=== PATIENT | female | born 2000 | race Caucasian/White ===

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

== ENCOUNTER 2022-01-03 19:07 | Emergency (ER) | payer MEDICAID ==
[~2022-01-03] VITALS: Ht 170.2 cm; Wt 117.5 kg
[~2022-01-03 19:07] MED LIST: CLIN300C2 PO; FERR324T11 PO; HYDR-5122 PO
[2022-01-03 19:10] VITALS: BP 122/75
--- NOTE | 2022-01-03 19:37 | NUR ---
azra collected and taken to lab.
--- NOTE | 2022-01-03 20:00 | NUR ---
Britni delcid in EDM - 01/03/22 at 2001 by MEDSARA PT TAKEN TO ER BED 12
--- NOTE | 2022-01-03 20:01 | NUR ---
PT TAKEN TO ER BED 11
--- NOTE | 2022-01-03 20:14 | NUR ---
21 Y/O FEMALE BIBS, C/O FEVER X3 DAYS AND WOUND TO RIGHT ARMPIT. FOR X3 DAYS PT HAS HAD A FEVER, HEADACHE, NAUSEA, AND CHILLS. SKIN IS PINK, WARM, AND DRY. PT HAS A OPEN WOUND WITH POSS INFECTION TO RIGHT ARMPIT X1 MONTH.PT REPORTS IT IS "STARTING TO SMELL." DENIES VOMIT, DIARRHEA, OR BODY ACHES. PT IS A/OX4, GCS-15. PT HAS UNLABORED BREATHING AND SPEAKING IN FULL SENTENCES. PT WALKED TO BED W/O ASSISTANCE. BED IS LOWERED AND HOB RAISED, AND RAILS UP X1. PT HAS BEEN TAKING TYLENOL FOR PAIN FOR LAST 2 DAYS W/O RELIEF. PT DENIES PMH/RX NKA SX: ABCESS TO L BREAST
[2022-01-03] MEDS ORDERED: ACETAMINOPHEN EXTRA STRENGTH 500 MG TAB PO ONE (20:55)
[2022-01-03] MEDS ORDERED: cephALEXin 500 MG CAP PO ONE (20:55)
--- NOTE | 2022-01-03 21:00 | NUR ---
FOUNTAIN PEN TURNER AT BEDSIDE
--- NOTE | 2022-01-03 21:20 | NUR ---
X-Ray at bedside.
[2022-01-03 21:27] LABS: BASOPHILS % (AUTO) 0.4 % (0.0-2.0); EOSINOPHILS % (AUTO) 0.1 % (0.0-4.0); HEMATOCRIT 35.6 % (36-48); HEMOGLOBIN 11.3 g/dL (12.0-16.0); MEAN CORPUSCULAR HEMOGLOBIN 25 pg (27-31); MEAN CORPUSCULAR HGB CONC 32 g/dL (33-37); MEAN CORPUSCULAR VOLUME 77.3 fL (80-94); MONOCYTES # (AUTO) 0.6 K/uL (0.8-1.0); MONOCYTES % (AUTO) 9.3 % (1.7-9.3); NEUTROPHILS # (AUTO) 4.2 K/uL (1.8-7.7); NEUTROPHILS % (AUTO) 61.2 % (42.2-75.2); PLATELET COUNT (AUTO) 227 K/uL (140-450); RED BLOOD CELL COUNT(AUTO) 4.61 MIL/uL (4.20-5.40); WHITE BLOOD COUNT (AUTO) 6.9 K/uL (4.8-10.8)
[2022-01-03 21:39] LABS: BILIRUBIN,URINE NEGATIVE (NEGATIVE); BLOOD, URINE NEGATIVE (NEGATIVE); COLOR,URINE YELLOW (YELLOW); LEUKOCYTE ESTERASE ,URINE NEGATIVE (NEGATIVE); NITRITE, URINE POSITIVE (NEGATIVE); UGLUCOSE NEGATIVE (NEGATIVE)
[2022-01-03 21:40] LABS: APPEARANCE,URINE HAZY (CLEAR)
[2022-01-03 21:44] LABS: ANION GAP 14.1 (8-16); CARBON DIOXIDE 22.3 mmol/L (21-32); CREATININE 0.7 mg/dL (0.6-1.3); POTASSIUM 3.4 mmol/L (3.5-5.1)
[2022-01-03] MEDS ORDERED: IBUP-2213 PO (22:08)
[2022-01-03] MEDS ORDERED: ACET-10509 PO (22:08)
[2022-01-03] MEDS ORDERED: CEPH-588 PO (22:08)
[2022-01-03 22:17] VITALS: BP 120/76
--- NOTE | 2022-01-03 22:17 | NUR ---
Patient discharged with v/s stable. Written and verbal after care instructions given and explained. Patient alert, oriented and verbalized understanding of instructions. Ambulatory with steady gait. All questions addressed prior to discharge. ID band removed. Patient advised to follow up with PMD. Rx of ACETAMINOPHEN, KEFLEX, AND IBUPROFEN given. Patient educated on indication of medication including possible reaction and side effects. Opportunity to ask questions provided and answered. VSS, A/OX4, AMBULATORY, UNLAABORED BREATHING, AND CALM DEMEANOR.
== END 2022-01-03 22:17 | disposition home or self-care (01) ==
LOC: MED 19:07
DX: L03.113 Cellulitis of right upper limb (principal); Z20.822 Contact with and (suspected) exposure to COVID-19; L03.114 Cellulitis of left upper limb; L73.2 Hidradenitis suppurativa; Z79.899 Other long term (current) drug therapy
CPT/HCPCS: 36415; 71045; 80048; 81003; 83605; 85025; 87040; 99284

== ENCOUNTER 2022-05-15 18:51 | Emergency (ER) | payer MEDICAID ==
[~2022-05-15] VITALS: Ht 170.2 cm; Wt 90.7 kg
[~2022-05-15 18:51] MED LIST changes: +ACET-10509 PO; +CEPH-588 PO; +IBUP-2213 PO
[2022-05-15 19:04] VITALS: BP 136/81
--- NOTE | 2022-05-15 19:11 | NUR ---
PT AMB TO BED 12.
--- NOTE | 2022-05-15 19:45 | NUR ---
PT C/O RECTAL PAIN AND BLEEDING, PT STATES SHE FELT A LUMP IN HER RECTUM YESTERDAY, CONSTIPATION X 1 WEEK, NO BM X 1 WEEK. DENIES ANY OTHER DISCOMFORT. PT PLACED IN GOWN, WAITING FOR EVALUATION.
--- NOTE | 2022-05-15 19:50 | NUR ---
GLADIS AND AT BEDSIDE PERFORMING RECTAL EVALUATION.
[2022-05-15] MEDS ORDERED: DOCU-299 PO (20:15)
[2022-05-15] MEDS ORDERED: HYDR-2734 TP (20:15)
[2022-05-15] MEDS ORDERED: IBUP-2213 PO (20:22)
[2022-05-15 20:25] VITALS: BP 132/60
--- NOTE | 2022-05-15 20:25 | NUR ---
Patient discharged with v/s stable. Written and verbal after care instructions given and explained. Patient verbalized understanding. Ambulatory with steady gait. All questions addressed prior to discharge. Advised to follow up with PMD.
== END 2022-05-15 20:24 | disposition home or self-care (01) ==
LOC: MED 18:51
DX: K64.4 Residual hemorrhoidal skin tags (principal); I10 Essential (primary) hypertension; Z79.899 Other long term (current) drug therapy; Z79.1 Long term (current) use of non-steroidal anti-inflammatories (NSAID); Z79.2 Long term (current) use of antibiotics
CPT/HCPCS: 99283

== ENCOUNTER 2024-04-05 16:35 | Emergency (ER) | payer MEDICAID, OTHER ==
[~2024-04-05] VITALS: Ht 170.2 cm; Wt 68.5 kg
[~2024-04-05 16:35] MED LIST changes: +DOCU-299 PO; +HYDR-2734 TP
[2024-04-05 16:54] VITALS: BP 97/58; PULSE 83; RESP 17; TEMP 98.7; O2SAT 100
[2024-04-05 18:32] LABS: BILIRUBIN,URINE NEGATIVE (NEGATIVE); BLOOD, URINE NEGATIVE (NEGATIVE); LEUKOCYTE ESTERASE ,URINE NEGATIVE (NEGATIVE); NITRITE, URINE POSITIVE (NEGATIVE); PH,URINE 6.5 (5.0-9.0); PROTEIN,URINE NEGATIVE (NEGATIVE); UGLUCOSE NEGATIVE (NEGATIVE)
[2024-04-05 18:35] LABS: BASOPHILS % (AUTO) 0.5 % (0.0-2.0); EOSINOPHILS # (AUTO) 0.2 K/uL (0-0.4); EOSINOPHILS % (AUTO) 3.8 % (0.0-4.0); HEMATOCRIT 31.1 % (36-48); HEMOGLOBIN 9.9 g/dL (12.0-16.0); LYMPHOCYTES # (AUTO) 1.3 K/uL (2.5-16.5); LYMPHOCYTES % (AUTO) 29.5 % (20.5-51.1); MEAN CORPUSCULAR HEMOGLOBIN 24 pg (27-31); MEAN CORPUSCULAR HGB CONC 32 g/dL (33-37); MEAN CORPUSCULAR VOLUME 76.7 fL (80-94); MONOCYTES # (AUTO) 0.4 K/uL (0.8-1.0); MONOCYTES % (AUTO) 8.5 % (1.7-9.3); NEUTROPHILS # (AUTO) 2.5 K/uL (1.8-7.7); NEUTROPHILS % (AUTO) 57.7 % (42.2-75.2); PLATELET COUNT (AUTO) 192 K/uL (140-450); RED BLOOD CELL COUNT(AUTO) 4.06 MIL/uL (4.20-5.40); RED CELL DISTRIBUTION WIDTH 17.2 % (11.6-13.7); WHITE BLOOD COUNT (AUTO) 4.3 K/uL (4.8-10.8)
[2024-04-05 18:40] LABS: APPEARANCE,URINE HAZY (CLEAR); COLOR,URINE AMBER (YELLOW)
[2024-04-05 18:41] LABS: RBC,URINE 0-5 /HPF (0-5)
[2024-04-05 18:42] LABS: BACTERIA,URINE >30 (MANY) /HPF (None Seen); MUCUS,URINE 1+ /LPF (None Seen); SQUAMOUS EPITHELIAL CELL,UR 0-3 (FEW) /LPF (0-3 (FEW)); WBC,URINE 0-5 /HPF (0-5)
[2024-04-05 18:55] LABS: ANION GAP 13.8 (8-16); CALCIUM 8.9 mg/dL (8.5-10.1); CARBON DIOXIDE 24.3 mmol/L (21-32); CREATININE 0.6 mg/dL (0.6-1.3); POTASSIUM 4.1 mmol/L (3.5-5.1)
[2024-04-05 19:01] LABS: ALBUMIN 3.5 g/dL (3.4-5.0); BILIRUBIN,DIRECT 0.1 mg/dL (0.0-0.3); TOTAL BILIRUBIN 0.2 mg/dL (0.0-1.0); TOTAL PROTEIN, SERUM 8.3 g/dL (6.4-8.2)
[2024-04-05] MEDS ORDERED: IBUP-2213 PO (21:18)
[2024-04-05] MEDS ORDERED: CEPH-588 PO (21:18)
[2024-04-05 21:23] VITALS: BP 102/65; PULSE 80; RESP 18; TEMP 98.5; O2SAT 100
== END 2024-04-05 21:23 | disposition home or self-care (01) ==
LOC: MED 16:35
DX: N39.0 Urinary tract infection, site not specified (principal); G56.01 Carpal tunnel syndrome, right upper limb; Z79.899 Other long term (current) drug therapy
CPT/HCPCS: 36415; 80048; 80076; 81001; 81025; 83690; 85025; 87086; 99284